=== PATIENT | male | born 1990 | race Hispanic/Latino ===

== ENCOUNTER 2024-09-10 11:19 | Emergency (ER) | payer SELFPAY ==
[2024-09-10] MEDS ORDERED: Ibuprofen 200 MG TAB ONE (13:04)
== END 2024-09-10 13:00 | disposition home or self-care (01) ==
LOC: ERS 11:19
DX: S09.90XA Unspecified injury of head, initial encounter (principal); M54.2 Cervicalgia; V49.49XA Driver injured in collision with other motor vehicles in traffic accident, initial encounter; Y93.89 Activity, other specified
CPT/HCPCS: 99282